=== PATIENT | male | born 1980 | race Caucasian/White ===

== ENCOUNTER 2018-02-26 14:24 | Outpatient (CLI) | payer OTHER, SELFPAY ==
--- NOTE | 2018-02-26 14:38 | DI.RAD_ITS ---
SYMPTOMS/DIAGNOSIS: COUGH, R05 PA AND LATERAL CHEST: Comparison is made with [id number]. The cardiac and mediastinal contours have a normal appearance. The lungs are well inflated and clear. No infiltrate or effusion is seen. IMPRESSION: Negative chest x-ray.
== END 2018-02-26 14:44 ==
PROVIDERS: PCP Specialist/Technologist Athletic Trainer; Visit Provider Specialist/Technologist Athletic Trainer
DX: R05 Cough (principal)
CPT/HCPCS: 71046

== ENCOUNTER 2024-11-04 13:24 | Outpatient (CLI) | payer OTHER, SELFPAY ==
--- NOTE | 2024-11-04 09:45 | DI.RAD_ITS ---
Exam(s) XR CHEST 2V PA LATERAL EXAM: XR CHEST 2V PA LATERAL CLINICAL HISTORY: evaluate pna, cough, r05.9. TECHNIQUE: 2D digital imaging was performed. COMPARISON: No exams were available for comparison FINDINGS: 2 views: Heart size is normal. The mediastinum is not widened. Lungs are clear. No infiltrates nor pleural effusions. IMPRESSION: No acute pulmonary findings. DATA REPOSITORY: RADIATION DOSE DELIVERED:
== END 2024-11-04 13:44 ==
LOC: DI 13:24
PROVIDERS: PCP Nurse Practitioner Family; Visit Provider Nurse Practitioner Family
DX: R05.9 Cough, unspecified (principal)
CPT/HCPCS: 71046

== ENCOUNTER 2024-11-13 12:10 | Outpatient (CLI) | payer OTHER, SELFPAY ==
--- NOTE | 2024-11-13 | DI.MRI_ITS ---
Exam(s) MR LOWER JOINT LT WO EXAM: MR LOWER JOINT LT WO CLINICAL HISTORY: INTERNAL DERANGEMENT LT KNEE,M23.92,LAXITY TO VALGUS STRESS,? ACL INJURY,+. TECHNIQUE: Multiplanar multisequence MRI was performed. COMPARISON: No exams were available for comparison FINDINGS: BONES: There is no fracture or contusion pattern. JOINTS: There is mild hyperintense signal seen in the articular cartilage overlying the patella. The articular cartilage is otherwise unremarkable. No effusion is present. TENDONS: Extensor mechanism: Unremarkable. Medial retinaculum: Unremarkable. Lateral retinaculum: Unremarkable. Popliteus: Unremarkable. MUSCLES: Unremarkable. MENISCI: The medial meniscus is unremarkable. The lateral meniscus is unremarkable. SOFT TISSUES: There is a small popliteal cyst present. LIGAMENTS: Anterior Cruciate: There is a round focus of hyperintense signal seen within the anterior cruciate ligament which may represent a ganglion cyst. It measures 6 x 2 mm. The ACL appears intact. Posterior Cruciate: Unremarkable. Medial Collateral:Unremarkable. Lateral Collateral: Unremarkable. OTHER: IMPRESSION: 1. There is no evidence of a meniscal or ligament tear. 2. Chondromalacia patella. 3. ACL ganglion cyst. 4. Small popliteal cyst. DATA REPOSITORY:
== END 2024-11-13 12:30 ==
LOC: DI 12:10
PROVIDERS: PCP Nurse Practitioner Family; Visit Provider Family Medicine
DX: M22.3X2 Other derangements of patella, left knee (principal)
CPT/HCPCS: 73721

== ENCOUNTER 2024-12-04 15:44 | Outpatient (CLI) | payer OTHER, SELFPAY ==
--- NOTE | 2024-12-04 13:00 | DI.RAD_ITS ---
Exam(s) XR KNEE LT 3V AP,LAT,RACHELL EXAM: XR KNEE LT 3V AP,LAT,RACHELL CLINICAL HISTORY: evlautate left knee. TECHNIQUE: 2D digital imaging was performed of the left knee. Three images were obtained. Merchant,AP and lateral views were obtained. COMPARISON: MR MR LOWER JOINT LT WO from 11/13/2024 FINDINGS: BONES: No acute fracture is present. No bony destructive lesion is seen. JOINTS: The knee is normally aligned. No joint effusion is seen. No loose body. SOFT TISSUE: Normal. IMPRESSION: Normal radiographs of the left knee. DATA REPOSITORY: RADIATION DOSE DELIVERED:
== END 2024-12-04 15:45 | disposition home or self-care (01) ==
LOC: DIORS 15:44
PROVIDERS: PCP Nurse Practitioner Family; Visit Provider Student in an Organized Health Care Education/Training Program
DX: M22.42 Chondromalacia patellae, left knee (principal)
CPT/HCPCS: 73562